=== PATIENT | male | born 2000 | race Caucasian/White ===

== ENCOUNTER 2024-09-25 12:54 | Emergency (ER) | payer MEDICAID ==
[~2024-09-25] VITALS: Ht 165.1 cm; Wt 54.4 kg
[2024-09-25 13:18] VITALS: BP 93/54; O2SAT 99
[2024-09-25 14:26] VITALS: PULSE 69; RESP 15; TEMP 36.66960; O2SAT 100
== END 2024-09-25 14:26 | disposition home or self-care (01) ==
LOC: ER 12:54
DX: S20.211A Contusion of right front wall of thorax, initial encounter (principal); S80.02XA Contusion of left knee, initial encounter; V29.99XA Rider (driver) (passenger) of other motorcycle injured in unspecified traffic accident, initial encounter; Y93.89 Activity, other specified; Y92.89 Other specified places as the place of occurrence of the external cause; Y99.8 Other external cause status
CPT/HCPCS: 99281

== ENCOUNTER 2024-09-26 12:41 | Emergency (ER) | payer MEDICAID ==
[~2024-09-26] VITALS: Ht 165.1 cm; Wt 54.0 kg
[2024-09-26 12:43] VITALS: O2SAT 99
[2024-09-26 13:28] VITALS: BP 97/58; PULSE 60; RESP 16; TEMP 36.83628; O2SAT 99
== END 2024-09-26 13:32 | disposition home or self-care (01) ==
LOC: ER 12:41
DX: Z04.1 Encounter for examination and observation following transport accident (principal)
CPT/HCPCS: 71045; 73560; 99284